=== PATIENT | male | born 1985 | race Caucasian/White ===

== ENCOUNTER → 2021-05-23 | Outpatient (CLI) | payer OTHER | END | disposition home or self-care (01) ==

== ENCOUNTER → 2021-11-17 | Outpatient (CLI) | payer OTHER | END | disposition home or self-care (01) | LOC: LABMAIN 08:17 | PROVIDERS: ATTEND Physician Assistant Medical | DX: U07.1 COVID-19 (principal); J32.9 Chronic sinusitis, unspecified | CPT/HCPCS: 87635 ==